=== PATIENT | female | born 1995 | race Hispanic/Latino ===

== ENCOUNTER 2017-05-01 09:58 | Emergency (ER) | payer OTHER ==
[~2017-05-01] VITALS: Ht 167.6 cm; Wt 90.9 kg
[2017-05-01 10:04] VITALS: BP 126/88; PULSE 86; RESP 16; O2SAT 100
--- NOTE | 2017-05-01 10:13 | ED.REPORT ---
HPI-Extremity Problem Lower Date of Service May 01, 2017 ED Provider: Fredy Anguiano MD A 21 year old female with no pertinent medical history presents to the ED complaining of left ankle pain. The pt was walking yesterday when she turned and twisted her left ankle. She was unable to bear weight after that point, and the pain has not decreased since. The pt has been walking with a borrowed walker since the incident. No other trauma is reported. Nursing Notes Stated Complaint: SPRAINED ANKLE/ LEFT Chief Complaint: Extremity Trauma Nursing Notes Reviewed: Yes Allergies: Coded Allergies: Penicillins (Verified Allergy, Intermediate, rash, 05/01/17) Scheduled PRN Ibuprofen (Ibuprofen) 800 Mg Tablet 800 MG PO TID PRN PRN For Pain General Time Seen by MD: 10:09 Chief Complaint Ankle injury left Hx Obtained From: Patient Arrived By: Walk-in Onset Occurred: 1 day ago Symptom Duration: Since onset Recent Healthcare: No recent doctor visit, No recent hospitalization Similar Sx Previous: No Past Medical History Past Medical History None reported Past Surgical History None reported Smoking History Unknown if Ever Smoker Ambulatory Status Independent Review of Systems Musculoskeletal: Reports: Extremity pain, Denies: Back pain, Neck pain Skin: Denies Rash Complete sys rev & neg: except as marked. Respiratory: Denies: Non-productive cough, Shortness of breath Cardiovascular: Denies: Chest pain GI: Denies: Abdominal pain, Nausea, Vomiting Physical Exam Initial Vital Signs Vital Signs (First) Date Time Temp Pulse Resp B/P Pulse Ox O2 Delivery O2 Flow Rate FiO2 05/01/17 10:04 37.2 86 16 126/88 100 Room Air Initial VS: Reviewed Lower Extremity / Pelvis / MS: Atraumatic, Full range of motion, Neurologic intact, Vascular intact Ankle / Foot: Full range of motion, No erythema left lateral ankle tenderness and swelling no gross deformity neurovascularly intact distally General/Constitutional: Awake, Alert Respiratory / Chest: Atraumatic, Breath sounds NL, Breath sounds = bilat, No respiratory distress Cardiovascular: Heart rate NL, Regular rhythm, Heart sounds NL Skin: Atraumatic, Color NL, No rash, Warm, Dry Neurologic: Oriented X3, Speech NL, No motor deficits, No sensory deficits Head / Eyes: Atraumatic, Normocephalic, PERRL, EOMI ENT: Atraumatic, Airway patent, Mucous membranes moist Neck: Atraumatic, Supple, Full range of motion Abdomen: Atraumatic, Soft, Non-tender Back: Atraumatic, Full range of motion Upper Extremity / MS: Atraumatic, Full range of motion Psychiatric: Affect NL, Mood NL Interpretation & Diagnostics X-Ray Interpretation Xray Interpretation: IMPRESSION: Inferior tip fracture lateral malleolus, no malalignment at the joint space. Overlying soft tissue swelling. Dictated by: Brett Cuba M.D. on 05/01/2017 at 10:28 Approved by: Brett Cuba M.D. on 05/01/2017 at 10:29 X-Ray Ordered: Ankle left Interpretation / Wet Read by: Interpret - Radiologist Procedures Splint Application - Fx Mgt Splint Application- Fx Mgt: kaylie santiagot, short leg Time: 11:19 Procedure Performed by: ED physician, [employer], Under my direct supervis Precise Anatomic Location: left ankle Definitive Fracture Care: Splint Post-Procedure / Complications: Cap refill normal, Post splint vascular nl, Post splint neuro nl, Condition improved, Tolerated procedure well, Patient stable Splint Post-Application Eval Splint Post-Application Eval: left ankle Extremity Condition: Cap refill < 2 sec, Distal sensation intact, Distal motor Intact, No compartment syndrome Re-Eval/Medical Decision Med Decision/Clinical Course 21-year-old female with left distal fibular fracture status post rolling her ankle. Splinted as above. Crutches given. Follow-up with orthopedics in one week. Return precautions given. Source of Hx: Old records Re-Evaluation/Progress #1: Time of Eval: 10:30 Patient Status: Condition improved Re-Evaluation/Progress Note: Pt rechecked, who is comfortable. Radiology results, diagnosis and plan for discharge are discussed. The pt understands and agrees with the plan. All questions are addressed at this time. Re-Evaluation/Progress #2: Time of Eval: 11:19 Patient Status: Condition improved Re-Evaluation/Progress Note: Pt rechecked and splint is placed without complication. Counseled Regarding: Diagnosis, Lab results, Need for follow-up, When/why to return to ED Discharge & Departure Impression: Primary Impression: Fracture of distal fibula Encounter type: initial encounter Fracture type: closed Fracture morphology : unspecified fracture morphology Laterality: left Qualified Code: S82.832A - Other fracture of upper and lower end of left fibula, initial encounter for closed fracture Disposition: Home Discharge Condition All VS Reviewed: Yes Condition: Stable Patient Instructions: Ankle Fracture (ED), Crutch Instructions (ED) Additional Instructions: Thank you for entrusting us with your care. Take Motrin as directed for pain. Wear the splint until you are seen by orthopedics in follow up, and use the crutches for additional support. Call your primary care physician to arrange a follow up appointment in the next several days. Also call orthopedics for a follow up appointment in one week. Return to the emergency department if you develop any new or worsening symptoms such as numbness, tingling, weakness, fever, nausea or vomiting. Referrals: Gerda Painter MD (PCP) Timothy Oreilly DO Scribe Attestation Portions of this note were transcribed by Radha Sosa. I, Dr. Anguiano personally performed the history, physical exam and medical decision-making; I reviewed and confirmed the accuracy of the information in the transcribed note. copies to: Timothy Oreilly DO; Gerda Painter MD, Ben M MD May 01, 2017 10:13 RADHA SOSA May 01, 2017 10:23
--- NOTE | 2017-05-01 10:31 | DRSVH ---
PROCEDURE: X-RAY LEFT ANKLE, MINIMUM THREE VIEWS ([id number]) INDICATIONS: trauma TECHNIQUE: 3 views of the ankle were acquired. COMPARISON: [facility], CR, ANKLE MIN 3VW (LT), 12/05/2010, 14:36. FINDINGS: Bones: No dislocations. Ankle mortise is normally aligned. No suspicious bony lesions. There is a inferior tip fracture involving the lateral malleolus. Soft tissues: No tibiotalar joint effusion. Achilles tendon appears normal. Medial and lateral sof t tissue swelling is moderately prominent at the ankle joint level. IMPRESSION: Inferior tip fracture lateral malleolus, no malalignment at the joint space. Overlying s oft tissue swelling. Dictated by: Brett Cuba M.D. on 05/01/2017 at 10:28 Approved by: Brett Cuba M.D. on 05/01/2017 at 10:29
[2017-05-01] MEDS ORDERED: IBUP800T28 PO (11:36)
[2017-05-01 12:03] VITALS: BP 123/87; PULSE 87; RESP 20; O2SAT 97
== END 2017-05-01 11:37 | disposition home or self-care (01) ==
LOC: SED 09:58
DX: S82.832A Other fracture of upper and lower end of left fibula, initial encounter for closed fracture (principal); X50.0XXA Overexertion from strenuous movement or load, initial encounter; Y93.01 Activity, walking, marching and hiking; Y99.8 Other external cause status; Y92.89 Other specified places as the place of occurrence of the external cause; Z88.0 Allergy status to penicillin